=== PATIENT | male | born 2000 | race Caucasian/White ===

== ENCOUNTER → 2018-12-11 | Outpatient (CLI) | payer BC ==
--- NOTE | 2018-12-11 16:46 | RADIOLOGY IMAGING REPORT ---
FACILITY: [facility] PATIENT NAME: Tequila Josue : 2000 MR: [id number] V: [id number] EXAM DATE: ORDERING PHYSICIAN: LYNN DIEGO TECHNOLOGIST: Location: [facility] Patient: Tequila Josue : 2000 Visit/Account:[id number] Date of Sevice: 12/11/2018 EXAMINATION: Scrotal ultrasound with duplex Doppler evaluation. HISTORY: Right testicle pain. COMPARISON: None. FINDINGS: Normal size and echogenicity of both testicles. No focal intratesticular mass. The right testis alfred ures 4.4 x 2.5 x 3.2 cm; the left testis 4.8 x 2.4 x 2.7 cm. Both testicles demonstrate normal vascul arity with Doppler evaluation. Normal appearance of the epididymis on each side, with normal and symmetric vascularity. The epididym al head measures 0.9 cm on the right and 0.7 cm on the left. No significant hydrocele or varicocele. IMPRESSION: Unremarkable scrotal ultrasound. Report Dictated By: Dov Strickland MD at 12/11/2018 4:39 PM Report E-Signed By: Dov Strickland MD at 12/11/2018 4:42 PM WSN:[id number]
== END ==
LOC: US 15:45
PROVIDERS: ATTEND Nurse Practitioner Family
DX: N50.819 Testicular pain, unspecified (principal)
CPT/HCPCS: 76870